=== PATIENT | male | born 1945 | race Hispanic/Latino ===

== ENCOUNTER 2018-01-07 08:22 | Day surgery (SDC) | payer BC ==
[2015-03-03 12:51] VITALS: BMI 30.4
[2018-01-07] MEDS ORDERED: Propofol 10 mg/ml Inj (20 ML) ONE (10:34)
[2018-01-07] MEDS ORDERED: Sodium Chloride 0.9% 1,000 ML IV SCH (11:15)
[2018-01-07 11:53] VITALS: RESP 18
[2018-01-07 12:19] VITALS: BP 117/69; PULSE 69; TEMP 97.5; O2SAT 96
== END 2018-01-07 12:41 | disposition home or self-care (01) ==
LOC: ENDO 08:22
PROVIDERS: ATTEND Internal Medicine Gastroenterology
DX: D12.8 Benign neoplasm of rectum (principal); K64.8 Other hemorrhoids; I25.10 Atherosclerotic heart disease of native coronary artery without angina pectoris; I10 Essential (primary) hypertension
CPT/HCPCS: 45385; 88305; J2704; J7040 ×2